=== PATIENT | male | born 1950 | race Caucasian/White ===

== ENCOUNTER → 2017-12-22 13:25 | Outpatient (POV) | payer BC, SELFPAY | PROVIDERS: PCP Family Medicine | DX: Z00.00 Encounter for general adult medical examination without abnormal findings (principal) ==

== ENCOUNTER → 2018-12-07 14:16 | Outpatient (POV) | payer BC, SELFPAY | DX: Z00.00 Encounter for general adult medical examination without abnormal findings (principal) ==

== ENCOUNTER → 2019-08-17 07:47 | Outpatient (CLI) | payer MEDICARE, SELFPAY ==
--- NOTE | 2019-08-17 08:00 | US_ITS ---
PROCEDURE: US AORTA CLINICAL INDICATION: AAA SCREENING COMPARISON: No exams were available for comparison FINDINGS: The abdominal aorta shows no evidence of dilatation. There is some minimal plaque in the mid abdominal aorta. Common iliacs are unremarkable. IMPRESSION: No evidence of aortic aneurysm Dictated by: Jesus Jolly MD 08/17/2019 18:02 Electronically signed by Jesus Jolly MD in [place] 08/17/2019 18:02
--- NOTE | 2019-08-17 08:30 | CT_ITS ---
PROCEDURE: CT LUNG SCREENING CLINICAL INDICATION: HX TOBACCO USE Forty pack-year smoking history, asymptomatic for lung cancer COMPARISON: No exams were available for comparison TECHNIQUE: The exam was performed on a GE Light Speed [address] scanner using 2.90 mGy CTDI. A low dose helical CT CHEST was performed on a multi-detector scanner. All CT scans at the facility use one or more dose reduction, viz: automated exposure control, ma/kV adjustment per patient size (including targeted exams where dose is matched to indication, i.e. head), or iterative reconstruction technique. The LDCT was performed in a facility that meets the criteria for the screening program. Data regarding this exam was submitted to A[employer] which is an approved registry. The order for this exam indicates that it came as a result of a lung cancer screening counseling shard decision-making visit that included all the elements required of such a visit including smoking cessation. The radiologist interpreting this exam meets the [facility] criteria for the LDCT lung cancer screening program. The exam is reported using the Lung-RADS classification scale and reported to the ACR registry. NOTE: This study was performed for the specific purposes of lung cancer screening and is not an alternative to diagnostic chest CT. RADIATION DOSE: CTDI vol(CT dose Index-volume) = 2.90mG DLP (Dose Length Product) = 115.42 mGcm FINDINGS: Scattered small nodes are present in the mediastinum and lynn some of which are calcified. Coronary artery calcification noted. There is an 8 mm ground-glass opacity in the left upper lobe centrally image 37 series 4. No other abnormalities are apparent. There is mild bilateral gynecomastia OTHER FINDINGS: No other pertinent findings evident. IMPRESSION: 8 mm ground-glass opacity left upper lobe Lung rads category 3 probably benign. Recommend six-month CT follow-up Dictated by: Jesus Jolly MD 08/17/2019 18:33 Electronically signed by Jesus Jolly MD in [place] 09/03/2019 06:19
== END ==
PROVIDERS: PCP Family Medicine; Visit Provider Family Medicine
DX: Z87.891 Personal history of nicotine dependence (principal); Z12.2 Encounter for screening for malignant neoplasm of respiratory organs; Z13.6 Encounter for screening for cardiovascular disorders
CPT/HCPCS: 76770

== ENCOUNTER → 2020-01-03 13:40 | Outpatient (POV) | payer MEDICARE, SELFPAY | DX: Z00.00 Encounter for general adult medical examination without abnormal findings (principal) ==

== ENCOUNTER → 2021-01-22 14:41 | Outpatient (POV) | payer MEDICARE, SELFPAY | DX: Z00.00 Encounter for general adult medical examination without abnormal findings (principal) ==

== ENCOUNTER 2024-04-15 12:31 | Emergency (ER) | payer MEDICARE, SELFPAY ==
[2024-04-15 12:32] VITALS: BP 172/87; PULSE 82; RESP 18; TEMP 36.8; O2SAT 97; BMI 26.9
[2024-04-15] MEDS: TET/DIPHTH/PERT-ADULT 0.5ML SYRINGE 0.5 ML IM (13:15)
--- NOTE | 2024-04-15 13:15 | ED_ITS ---
Discharge Plan Disposition Patient Disposition: Home, Self-Care Condition: Good Prescriptions Prescriptions: New mupirocin 2 % ointment 1 applic topical BID Qty: 22 0RF Referrals Follow up/Referrals: Lara Rolon MD [Primary Care Provider] - See instructions Activity Restrictions/Add. Instructions Additional Instructions/Restrictions: Clean and dry area twice daily and pat dry. Apply medication as prescribed and cover with non-adherent dressing and wrap with Coban. Clinical Impressions Clinical Impression: Open wound of left thumb Qualifiers: Encounter type: initial encounter Qualified Code(s): S61.002A - Unspecified open wound of left thumb without damage to nail, initial encounter Instructions Patient Instructions: How to Care for a Surgical Wound Discharge ED Provider: Hilary Omer [facility] General Stated complaint: AO 04/15/24 @11:30, cut left thumb Mode of Arrival: Ambulatory Source of Information: Patient Limitations: No Limitations Time Seen by Provider: 04/15/24 13:00 Description of Symptoms (Recalled from Triage Doc. by RN): CUT LEFT THUMB WITH SAW HEENT Symptoms (Recalled from RN notes): No Resp Symptoms (Recalled from RN notes): No Skin Symptoms (Recalled from RN notes): Yes MS Symptoms (Recalled from RN notes): No Functional Status (Recalled from RN notes): WNL History of Present Illness Provider Complaint: Pt reports that he cut his thumb with a chainsaw. He reports that he removed the excess skin as it was barely hanging on. Related Data Previous Rx's Medication Instructions Recorded mupirocin 2 % topical ointment 1 applic topical BID #22 grams 04/15/24 Allergies Allergy/AdvReac Type Severity Reaction Status Date / Time Sulfa (Sulfonamide Allergy Verified 04/15/24 12:56 Antibiotics) Worker's Comp Is this a Worker's Comp case?: No [facility] Disclaimer: The information contained in this section may have been updated after the patient was seen, as this information can be updated by other users. Social History Smoking Status: Never smoker alcohol intake: never current occupational status: previously employed Travel in the last 8 weeks: None ROS Obtained: Yes All systems reviewed & no additional complaints except as documented Constitutional Constitutional: Reports system reviewed and no additional complaints, except as documented Eyes Eyes: Reports system reviewed and no additional complaints, except as documented ENT Ears, Nose, Mouth, and Throat: Reports system reviewed and no additional complaints, except as documented Cardiovascular Cardiovascular: Reports system reviewed and no additional complaints, except as documented Respiratory Respiratory: Reports system reviewed and no additional complaints, except as documented Gastrointestinal Gastrointestingal: Reports system reviewed and no additional complaints, except as documented Genitourinary Male Genitourinary: Reports system reviewed and no additional complaints, except as documented Musculoskeletal Musculoskeletal: Reports system reviewed and no additional complaints, except as documented Integumentary/Breasts Skin/Breast: Reports system reviewed and no additional complaints, except as documented, Reports as per HPI and Reports wounds Neurologic Neurologic: Reports system reviewed and no additional complaints, except as documented Endocrine Endocrine: Reports system reviewed and no additional complaints, except as documented Hematologic/Lymphatic Henatologic/Lymphatic: Reports system reviewed and no additional complaints, except as documented Allergic/Immunologic Allergic/Immunologic: Reports system reviewed and no additional complaints, except as documented Physical Exam General General appearance: alert and in no apparent distress Head Head exam: atraumatic and normocephalic Eye Eye exam: Present normal appearance ENT ENT exam: Present normal exam Neck Neck exam: Present normal inspection Chest Chest inspection: Present normal inspection and symmetric chest wall rise Respiratory Respiratory exam: Present normal lung sounds bilaterally Cardiovascular Cardiovascular exam: Present regular rate, normal rhythm and normal heart sounds Abdominal Exam Abdominal exam: Present soft and normal bowel sounds Extremities Exam Extremities exam: Present other (chunk from the left thumb noted) Back Exam Back exam: Present normal inspection Neurological Exam Neurological exam: Present alert and oriented X3 Psychiatric Psychiatric exam: Present normal affect and normal mood Skin Skin exam: Present other Expanded Skin Exam Type of lesion: Present other (moderate piece of skin/tissue from left thumb. ) Distribution: LUE Description: Present discharge (blood ) Lymphatic Lymphatic Findings: no adenopathy Medical Decision Making Lee Inquiry Pt receiving controlled substance: No Lee was queried for this patient: No Vital Signs: 04/15/24 12:32 Temperature 98.2 F Temperature Source Oral Pulse Rate [Radial] 82 Respiratory Rate 18 Blood Pressure [Right Arm] 172/87 H Blood Pressure Mean [Right Arm] 115 Blood Pressure Source [Right Arm] Automatic Cuff Blood Pressure Position [Right Arm] Sitting 02 Sat by Pulse Oximetry 97 Oxygen Delivery Method Room Air Orders (Tests/Meds): ED MEDICATIONS Discontinued Medications Generic Name Dose Route Start Last Admin Trade Name Freq PRN Reason Stop Dose Admin Tetanus/Reduced Diphtheria/Acell Pertussis 0.5 ml 04/15/24 12:56 Tet/Diphth/Pert-Adult 0.5ml Syringe IM 04/15/24 12:57 .ONCE ONE Procedures Miscellaneous Procedure Procedure Performed: wound on left thumb cleaned with sterile water. Non stick dressing applied and wrapped with coban.
[2024-04-15 13:24] VITALS: BP 172/87; PULSE 82; RESP 18; TEMP 36.8; O2SAT 97
== END 2024-04-15 13:39 | disposition home or self-care (01) ==
PROVIDERS: Emergency Provider Nurse Practitioner Family; PCP Family Medicine
DX: S61.002A Unspecified open wound of left thumb without damage to nail, initial encounter (principal); W31.2XXA Contact with powered woodworking and forming machines, initial encounter; Z23 Encounter for immunization
CPT/HCPCS: 90471; 90715; 99204; 99212; G0463